=== PATIENT | female | born 1955 | race Caucasian/White ===

== ENCOUNTER 2019-01-20 08:56 | Inpatient (IN) | payer OTHER ==
[2019-01-20] MEDS ORDERED: LACTATED RINGER'S 1,000 ML IV (11:00)
[2019-01-20] MEDS ORDERED: POLYMYXIN/BACITRACIN 1L IRRIG (11:04)
[2019-01-20] MEDS ORDERED: CEFAZOLIN 1 GM INJ (11:34)
[2019-01-20] MEDS ORDERED: METOCLOPRAMIDE 10 MG INJ (11:35)
[2019-01-20] MEDS ORDERED: ONDANSETRON 4 MG INJ (11:35)
[2019-01-20] MEDS ORDERED: TRANEXAMIC ACID 1GM/100ML(PMX) 200 ML (11:48)
[2019-01-20] MEDS ORDERED: PROPOFOL 20 ML (11:56)
[2019-01-20] MEDS ORDERED: GLYCOPYRROLATE 0.4 MG INJ ×3 (11:56→13:49)
[2019-01-20] MEDS ORDERED: ROCURONIUM 50 MG INJ (11:56)
[2019-01-20] MEDS ORDERED: LIDOCAINE 2% (SDV) 5 ML INJ (11:56)
[2019-01-20] MEDS ORDERED: SUCCINYLCHOLINE CHLORIDE 100 MG/5 ML SYG IV (11:56)
[2019-01-20] MEDS ORDERED: NEOSTIGMINE 3 MG/3 ML SYRINGE ×2 (11:56→13:45)
[2019-01-20] MEDS ORDERED: MEPERIDINE 100 MG INJ (11:56)
[2019-01-20] MEDS ORDERED: METOCLOPRAMIDE 10 MG INJ IV (12:00)
[2019-01-20] MEDS ORDERED: MIDAZOLAM 1 MG/ML 2 ML INJ IV (12:00)
[2019-01-20] MEDS ORDERED: hydrALAzine 20 MG INJ IV (12:00)
[2019-01-20] MEDS ORDERED: MEPERIDINE 25 MG INJ IV (12:00)
[2019-01-20] MEDS ORDERED: LABETALOL HCL 20MG INJ IV (12:00)
[2019-01-20] MEDS ORDERED: FENTAnyl 50 MCG/ML VIAL IV ×2 (12:00)
[2019-01-20] MEDS ORDERED: DIPHENHYDRAMINE 50 MG INJ IV ×2 (12:00→14:30)
[2019-01-20] MEDS ORDERED: HYDROmorphONE 1 MG/5 ML IV SYRINGE IV ×2 (12:00)
[2019-01-20] MEDS ORDERED: ONDANSETRON 4 MG INJ IV (12:00)
[2019-01-20] MEDS ORDERED: EPHEDrine 25 MG/5 ML SYG IV (12:00)
[2019-01-20] MEDS: TRANEXAMIC ACID 1GM/100ML(PMX) 100 ML IV (12:28)
[2019-01-20] MEDS: BACITRACIN/POLYMYXIN 28.35 GM OINT TOP (12:45)
[2019-01-20] MEDS: POLYMYXIN/BACITRACIN 1L IRRIG (12:45)
[2019-01-20] MEDS ORDERED: NALOXONE (0.4 MG/ML) INJ IV ×3 (14:30→15:00)
[2019-01-20] MEDS ORDERED: LABETALOL HCL 20MG INJ (14:30)
[2019-01-20] MEDS: HYDROmorphONE 1 MG/5 ML IV SYRINGE IV (14:31)
[2019-01-20] MEDS: FENTAnyl 50 MCG/ML VIAL IV (14:50)
[2019-01-20] MEDS: HYDROmorphONE 0.2 MG/ML PCA IV ×2 (14:54→20:40)
[2019-01-20] MEDS ORDERED: BISACODYL 10 MG SUPP PR (15:00)
[2019-01-20] MEDS ORDERED: SENNA/DOCUSATE NA (8.6MG/50MG) TAB PO (15:00)
[2019-01-20] MEDS ORDERED: HYDROmorphONE 1 MG/ML SYG IV (15:00)
[2019-01-20] MEDS ORDERED: NACL 0.9% 3 ML SYG IV (15:00)
[2019-01-20] MEDS ORDERED: MAGNESIUM HYDROXIDE 30ML CUP PO (15:00)
[2019-01-20] MEDS ORDERED: NA PHOSPHATE/BIPHOS 133 ML ENEMA PR (15:00)
[2019-01-20] MEDS: CEFAZOLIN 2 GM/50 ML (PMX) 50 ML IVPB ×2 (15:50→23:34)
[2019-01-20] MEDS: DOCUSATE SODIUM 100 MG CAP PO (15:56)
[2019-01-20] MEDS: ONDANSETRON 4 MG INJ IV ×3 (19:20→21:00)
[2019-01-20] MEDS: SOD CHLORIDE 0.9% 1,000 ML IV (22:31)
[2019-01-20 23:29] LABS: ADD MAN DIFF? NO
[2019-01-20] MEDS: BACLOFEN 10 MG TAB PO (23:33)
[2019-01-20] MEDS: KETOROLAC 30 MG INJ IV (23:36)
[2019-01-20 23:50] LABS: ALANINE AMINOTRANSFERASE 27 IU/L (13-69); ALBUMIN/GLOBULIN RATIO 1.29; ALKALINE PHOSPHATASE 44 IU/L (42-121); ANION GAP 10 (5-13); ASPARTATE AMINO TRANSFERASE 39 IU/L (15-46); BILIRUBIN,INDIRECT 0.5 mg/dl (0-1.1); BILIRUBIN,TOTAL 0.5 mg/dl (0.2-1.3); BLOOD UREA NITROGEN 13 mg/dl (7-20); CALCIUM 8.7 mg/dl (8.4-10.2); CARBON DIOXIDE 26 mmol/L (21-31); CHLORIDE 105 mmol/L (97-110); CREATININE 0.63 mg/dl (0.44-1.00); Estimated GFR > 60 mL/min (>60); GLUCOSE 131 mg/dl (70-220); POTASSIUM 4.5 mmol/L (3.5-5.1); SODIUM 141 mmol/L (135-144); TOTAL PROTEIN 7.1 g/dl (6.1-8.1)
[2019-01-20] MEDS: CEPASTAT LOZENGE MT (23:59)
[2019-01-21 00:27] LABS: BASOPHIL # 0.1 10^3/ul (0.0-0.1); BASOPHILS % 0.7 % (0.0-2.0); EOSINOPHILS % 0.1 % (0.0-7.0); HEMATOCRIT 32.6 % (37.0-47.0); HEMOGLOBIN 10.5 g/dl (12.0-16.0); LYMPHOCYTES # 1.6 10^3/ul (0.8-2.9); LYMPHOCYTES % 17.9 % (15.0-51.0); MEAN CORPUSCULAR HEMOGLOBIN 25.9 pg (29.0-33.0); MEAN CORPUSCULAR HGB CONC 32.2 g/dl (32.0-37.0); MEAN CORPUSCULAR VOLUME 80.3 fl (82.0-101.0); MEAN PLATELET VOLUME 9.4 fl (7.4-10.4); MONOCYTES % 10.8 % (0.0-11.0); NEUTROPHIL # 6.3 10^3/ul (1.6-7.5); NEUTROPHILS % 70.2 % (39.0-77.0); PLATELET COUNT 424 10^3/UL (140-415); RED BLOOD COUNT 4.06 10^6/ul (4.20-5.40); RED CELL DISTRIBUTION WIDTH 16.4 % (11.5-14.5)
[2019-01-21] MEDS: ONDANSETRON 4 MG INJ IV ×2 (03:00→09:00)
[2019-01-21] MEDS: SOD CHLORIDE 0.9% 1,000 ML IV (03:18)
[2019-01-21] MEDS: HYDROmorphONE 0.2 MG/ML PCA IV ×2 (03:27→10:23)
[2019-01-21 04:50] LABS: ADD MAN DIFF? NO
[2019-01-21 04:57] LABS: BASOPHIL # 0.1 10^3/ul (0.0-0.1); BASOPHILS % 0.6 % (0.0-2.0); EOSINOPHILS # 0.1 10^3/ul (0.0-0.5); EOSINOPHILS % 0.7 % (0.0-7.0); HEMATOCRIT 32.4 % (37.0-47.0); HEMOGLOBIN 10.4 g/dl (12.0-16.0); LYMPHOCYTES # 1.9 10^3/ul (0.8-2.9); LYMPHOCYTES % 22.3 % (15.0-51.0); MEAN CORPUSCULAR HEMOGLOBIN 25.8 pg (29.0-33.0); MEAN CORPUSCULAR HGB CONC 32.1 g/dl (32.0-37.0); MEAN CORPUSCULAR VOLUME 80.4 fl (82.0-101.0); MEAN PLATELET VOLUME 9.7 fl (7.4-10.4); MONOCYTE # 1.2 10^3/ul (0.3-0.9); MONOCYTES % 14.7 % (0.0-11.0); NEUTROPHIL # 5.2 10^3/ul (1.6-7.5); NEUTROPHILS % 61.5 % (39.0-77.0); PLATELET COUNT 428 10^3/UL (140-415); RED BLOOD COUNT 4.03 10^6/ul (4.20-5.40); RED CELL DISTRIBUTION WIDTH 16.7 % (11.5-14.5)
[2019-01-21 04:57] LABS: WHITE BLOOD COUNT 8.4 10^3/ul (4.8-10.8)
[2019-01-21 05:17] LABS: HEMOGLOBIN A1C 5.5 % (0-5.9)
[2019-01-21] MEDS: KETOROLAC 30 MG INJ IV (05:27)
[2019-01-21 05:37] LABS: ALANINE AMINOTRANSFERASE 23 IU/L (13-69); ALBUMIN 3.8 g/dl (3.3-4.9); ALBUMIN/GLOBULIN RATIO 1.22; ALKALINE PHOSPHATASE 46 IU/L (42-121); ANION GAP 9 (5-13); ASPARTATE AMINO TRANSFERASE 23 IU/L (15-46); BILIRUBIN,INDIRECT 0.4 mg/dl (0-1.1); BILIRUBIN,TOTAL 0.4 mg/dl (0.2-1.3); BLOOD UREA NITROGEN 13 mg/dl (7-20); CALCIUM 8.7 mg/dl (8.4-10.2); CARBON DIOXIDE 26 mmol/L (21-31); CHLORIDE 104 mmol/L (97-110); CHOL/HDL RATIO 3.2 RATIO; CHOLESTEROL 159 mg/dl (100-200); CREATININE 0.72 mg/dl (0.44-1.00); Estimated GFR > 60 mL/min (>60); GLUCOSE 117 mg/dl (70-220); HDL CHOLESTEROL 49 mg/dl (35-98); LDL CHOLESTEROL,CALCULATED 86 mg/dl; POTASSIUM 4.3 mmol/L (3.5-5.1); SODIUM 139 mmol/L (135-144); TOTAL PROTEIN 6.9 g/dl (6.1-8.1); TRIGLYCERIDES 120 mg/dl (0-149)
[2019-01-21 06:05] LABS: THYROID STIMULATING HORMONE 0.895 MIU/L (0.465-4.680)
[2019-01-21] MEDS ORDERED: PROPRANOLOL (LA) 80 MG CAP PO (09:00)
[2019-01-21] MEDS ORDERED: BACLOFEN 10 MG TAB PO (09:00)
[2019-01-21] MEDS: CEFAZOLIN 2 GM/50 ML (PMX) 50 ML IVPB (09:06)
[2019-01-21] MEDS: BACLOFEN 10 MG TAB PO (09:07)
[2019-01-21] MEDS: DOCUSATE SODIUM 100 MG CAP PO ×2 (09:07→23:13)
[2019-01-21] MEDS: PROPRANOLOL (LA) 80 MG CAP PO (09:37)
[2019-01-21] MEDS: DULOXETINE 30 MG CAP DR PO (23:12)
[2019-01-22 05:44] LABS: ADD MAN DIFF? NO
[2019-01-22 06:04] LABS: BASOPHILS % 0.4 % (0.0-2.0); EOSINOPHILS % 0.2 % (0.0-7.0); HEMOGLOBIN 10.1 g/dl (12.0-16.0); LYMPHOCYTES # 1.4 10^3/ul (0.8-2.9); LYMPHOCYTES % 14.6 % (15.0-51.0); MEAN CORPUSCULAR HEMOGLOBIN 25.4 pg (29.0-33.0); MEAN CORPUSCULAR HGB CONC 31.6 g/dl (32.0-37.0); MEAN CORPUSCULAR VOLUME 80.4 fl (82.0-101.0); MEAN PLATELET VOLUME 9.7 fl (7.4-10.4); MONOCYTE # 1.4 10^3/ul (0.3-0.9); MONOCYTES % 14.6 % (0.0-11.0); NEUTROPHIL # 6.5 10^3/ul (1.6-7.5); NEUTROPHILS % 69.8 % (39.0-77.0); PLATELET COUNT 354 10^3/UL (140-415); RED BLOOD COUNT 3.98 10^6/ul (4.20-5.40); RED CELL DISTRIBUTION WIDTH 16.4 % (11.5-14.5)
[2019-01-22 06:04] LABS: WHITE BLOOD COUNT 9.3 10^3/ul (4.8-10.8)
[2019-01-22 06:32] LABS: ALANINE AMINOTRANSFERASE 10 IU/L (13-69); ALBUMIN 3.6 g/dl (3.3-4.9); ALKALINE PHOSPHATASE 41 IU/L (42-121); ANION GAP 12 (5-13); ASPARTATE AMINO TRANSFERASE 23 IU/L (15-46); BILIRUBIN,INDIRECT 0.4 mg/dl (0-1.1); BILIRUBIN,TOTAL 0.4 mg/dl (0.2-1.3); BLOOD UREA NITROGEN 7 mg/dl (7-20); CALCIUM 8.7 mg/dl (8.4-10.2); CARBON DIOXIDE 24 mmol/L (21-31); CHLORIDE 103 mmol/L (97-110); CREATININE 0.53 mg/dl (0.44-1.00); Estimated GFR > 60 mL/min (>60); GLUCOSE 99 mg/dl (70-220); POTASSIUM 4.1 mmol/L (3.5-5.1); SODIUM 139 mmol/L (135-144); TOTAL PROTEIN 6.6 g/dl (6.1-8.1)
[2019-01-22] MEDS: PANTOPRAZOLE (EC) 40 MG TAB PO (06:57)
[2019-01-22] MEDS: DOCUSATE SODIUM 100 MG CAP PO ×2 (08:56→21:15)
[2019-01-22] MEDS: PROPRANOLOL (LA) 80 MG CAP PO (08:57)
[2019-01-22] MEDS: oxyCODONE 5 MG TAB PO ×2 (09:23→14:17)
[2019-01-22] MEDS: KETOROLAC 30 MG INJ IV (16:51)
[2019-01-22] MEDS: DULOXETINE 30 MG CAP DR PO (21:15)
[2019-01-23] MEDS: oxyCODONE 5 MG TAB PO (01:39)
[2019-01-23 05:17] LABS: ADD MAN DIFF? NO
[2019-01-23] MEDS: PANTOPRAZOLE (EC) 40 MG TAB PO (05:23)
[2019-01-23] MEDS: NACL 0.9% 3 ML SYG IV (05:23)
[2019-01-23 05:25] LABS: WHITE BLOOD COUNT 9.7 10^3/ul (4.8-10.8)
[2019-01-23 05:25] LABS: BASOPHIL # 0.1 10^3/ul (0.0-0.1); BASOPHILS % 0.5 % (0.0-2.0); EOSINOPHILS # 0.1 10^3/ul (0.0-0.5); HEMATOCRIT 29.4 % (37.0-47.0); HEMOGLOBIN 9.4 g/dl (12.0-16.0); LYMPHOCYTES # 1.6 10^3/ul (0.8-2.9); LYMPHOCYTES % 16.2 % (15.0-51.0); MEAN CORPUSCULAR HEMOGLOBIN 25.5 pg (29.0-33.0); MEAN CORPUSCULAR VOLUME 79.7 fl (82.0-101.0); MEAN PLATELET VOLUME 9.8 fl (7.4-10.4); MONOCYTE # 1.2 10^3/ul (0.3-0.9); MONOCYTES % 12.3 % (0.0-11.0); NEUTROPHIL # 6.7 10^3/ul (1.6-7.5); NEUTROPHILS % 69.4 % (39.0-77.0); PLATELET COUNT 382 10^3/UL (140-415); RED BLOOD COUNT 3.69 10^6/ul (4.20-5.40); RED CELL DISTRIBUTION WIDTH 16.3 % (11.5-14.5)
[2019-01-23 06:31] LABS: ALANINE AMINOTRANSFERASE 20 IU/L (13-69); ALBUMIN 3.2 g/dl (3.3-4.9); ALBUMIN/GLOBULIN RATIO 1.06; ALKALINE PHOSPHATASE 40 IU/L (42-121); ANION GAP 12 (5-13); ASPARTATE AMINO TRANSFERASE 21 IU/L (15-46); BILIRUBIN,INDIRECT 0.4 mg/dl (0-1.1); BILIRUBIN,TOTAL 0.4 mg/dl (0.2-1.3); BLOOD UREA NITROGEN 10 mg/dl (7-20); CALCIUM 8.5 mg/dl (8.4-10.2); CARBON DIOXIDE 24 mmol/L (21-31); CHLORIDE 103 mmol/L (97-110); CREATININE 0.53 mg/dl (0.44-1.00); Estimated GFR > 60 mL/min (>60); GLUCOSE 100 mg/dl (70-220); POTASSIUM 3.6 mmol/L (3.5-5.1); SODIUM 139 mmol/L (135-144); TOTAL PROTEIN 6.2 g/dl (6.1-8.1)
[2019-01-23] MEDS: PROPRANOLOL (LA) 80 MG CAP PO (09:01)
[2019-01-23] MEDS: DOCUSATE SODIUM 100 MG CAP PO (09:01)
[2019-01-23] MEDS: KETOROLAC 30 MG INJ IV (10:01)
[2019-01-23] MEDS ORDERED: traMADol 50 MG TAB PO (10:30)
[2019-01-23] MEDS: ONDANSETRON 4 MG INJ IV (18:11)
== END 2019-01-23 16:45 | DRG 470 ==
LOC: REC 08:56 → MS1 16:13
PROC: 0SRD0J9 Replacement of Left Knee Joint with Synthetic Substitute, Cemented, Open Approach (ICD-10-PCS; principal; 2019-01-20 11:00)
DX: M17.12 Unilateral primary osteoarthritis, left knee (principal); Z68.41 Body mass index [BMI] 40.0-44.9, adult; I10 Essential (primary) hypertension; E66.01 Morbid (severe) obesity due to excess calories; F32.9 Major depressive disorder, single episode, unspecified; R51 Headache; Z87.891 Personal history of nicotine dependence
CPT/HCPCS: 80053; 80061; 82306; 83036; 83735; 84443; 85025; 86850; 86900; 86901; 88304; 88311; 97116; 97162; 97530